=== PATIENT | female | born 1995 | race Caucasian/White ===

== ENCOUNTER → 2022-01-31 15:40 | Outpatient (CLI) | payer OTHER, MEDICAID, SELFPAY ==
[2022-01-31 16:54] LABS: Pregnancy Test Serum,Qual Negative (Negative)
== END ==
PROVIDERS: Family Provider Nurse Practitioner Family; PCP Nurse Practitioner; Referring Provider Physician Assistant; Visit Provider Physician Assistant
DX: N92.6 Irregular menstruation, unspecified (principal); R30.0 Dysuria
CPT/HCPCS: 36415; 81002; 84703; 87077; 87086; 87186

== ENCOUNTER → 2022-08-18 12:05 | Outpatient (CLI) | payer OTHER, MEDICAID, SELFPAY ==
--- NOTE | 2022-08-18 12:05 | DI.US.S_ITS ---
PROCEDURE: US OB <= 14 WEEKS FETUS INDICATIONS: DATING AND VIABILITY OUTSIDE/PRIOR DATING DATA: Last menstrual period (LMP): 06/16/2022. LMP-based estimated date of delivery (ROBE): 03/23/2023. First dating scan (date and location): 08/18/2022 at . Estimated date of delivery (ROBE) from first dating scan: 04/03/2023. TECHNIQUE: Real-time scanning was performed of the fetus and maternal pelvic organs, with image documentation. Endovaginal scanning was also performed to better visualize the fetus and maternal ovaries. COMPARISON: None. FINDINGS: Embryo: There is a single living IUP. The estimated gestational age is 7 weeks 3 days. heart tone is present with heart rate 143 BPM. Yolk sac appears slightly irregular. Maternal organs: There is a 1.8 x 2.6 x 2.1 cm complex cyst in right ovary. Left ovary appears grossly normal, but suboptimally visualized. IMPRESSION: 1. A single living intrauterine gestation with an estimated gestational age of 7 weeks 3 days corresponding to ultrasound ROBE 07/2023. 2. Yolk sac appears slightly irregular, uncertain clinical significance. 3. A complex cyst in right or ovary. We strive to produce accurate, complete, and clear reports of imaging services. To assist us in improving patient care, this report was composed using standard report templates and voice recognition software. Therefore, it may contain abnormal punctuation, insertions and/or omissions. Occasional wrong-word or sound-alike substitutions may occur. Though we review the report and make efforts to correct it, we do recommend that the report be read carefully in proper context to recognize any text inaccuracies. Dictated by: Destini Estrella M.D. on 08/18/2022 at 17:31 Approved by: Destini Estrella M.D. on 08/18/2022 at 17:35
== END ==
PROVIDERS: Family Provider Nurse Practitioner Family; PCP Nurse Practitioner; Referring Provider Obstetrics & Gynecology; Visit Provider Obstetrics & Gynecology
DX: Z36.87 Encounter for antenatal screening for uncertain dates (principal); O34.81 Maternal care for other abnormalities of pelvic organs, first trimester; N83.291 Other ovarian cyst, right side; Z3A.01 Less than 8 weeks gestation of pregnancy
CPT/HCPCS: 76801; 76830